=== PATIENT | female | born 1990 | race African-American/Black ===

== ENCOUNTER 2017-03-28 12:20 | Observation (INO) | payer SELFPAY | END 2017-03-28 13:45 | disposition home or self-care (01) | DRG 998 | LOC: LDRP 12:20 | PROVIDERS: ADMIT Obstetrics & Gynecology; ATTEND Obstetrics & Gynecology | DX: O26.899 Other specified pregnancy related conditions, unspecified trimester (principal); Z3A.00 Weeks of gestation of pregnancy not specified | CPT/HCPCS: 59025; 81002; G0378 ==